=== PATIENT | female | born 1955 | race Caucasian/White ===

== ENCOUNTER 2017-09-29 07:29 | Outpatient (CLI) ==
[2017-03-07 17:04] VITALS: BMI 28.3
== END 2017-09-29 07:30 | disposition home or self-care (01) ==
LOC: LAB 07:29
PROVIDERS: ATTEND Nurse Practitioner Family
DX: R53.83 Other fatigue (principal); N95.9 Unspecified menopausal and perimenopausal disorder
CPT/HCPCS: 36415; 82306; 82533; 82607; 82626; 82670; 82679; 82947; 83036; 83525; 84144; 84403; 84439; 84443; 84481; 86376

== ENCOUNTER 2017-11-19 22:36 | Outpatient (CLI) ==
[2017-03-07 17:04] VITALS: BMI 28.3
--- NOTE | 2017-11-19 23:30 | DI ---
EXAM: Chest, two views, 11/19/2017 HISTORY: Cough and fever COMPARISON: 01/03/2016 FINDINGS / IMPRESSION: Cardiomediastinal countours appear stable. There is no focal pulmonary conso lidation. No pleural effusion or pneumothorax. No acute cardiopulmonary process.
== END 2017-11-19 22:37 | disposition home or self-care (01) ==
LOC: LAB 22:36
PROVIDERS: ATTEND Internal Medicine Geriatric Medicine
DX: R05 Cough (principal); R50.9 Fever, unspecified
CPT/HCPCS: 36415; 80053; 85025

== ENCOUNTER 2018-01-29 07:05 | Outpatient (CLI) | payer OTHER ==
[2017-03-07 17:04] VITALS: BMI 28.3
--- NOTE | 2018-01-29 09:03 | US ---
EXAM: Renal artery duplex HISTORY: Uncontrolled hypertension COMPARISON: Renal ultrasound same day and CT abdomen pelvis 04/29/2016 TECHNIQUE: Sonographic and Doppler evaluation of the kidneys and renal arteries were performed. FINDINGS: The aorta is normal in appearance with peak systolic velocity of 40 centimeters per second and diameter of 1.4 cm. The IVC is patent. The right kidney measures 10.5 cm in length. Peak systolic velocities measure 50 cm/sec at the ostium, 90 cm/sec in the mid artery and 60 cm/sec i n the renal hilum. These are normal. The renal artery/aortic ratio measures 1.2 at the ostium, 2.2 in the mid renal artery and 1.5 in the hilum. The arcuate artery demonstrates a peak systolic velocity of 20 cm/sec and resistive index of 0.62 whi ch is normal. The right renal vein is patent. There are triphasic and nonspecific wave form. The left kidney measures 10.4 cm in length. Peak systolic velocities measure 70 cm/sec at the ostium, 80 cm/sec in the mid renal artery and 50 cm /sec in the renal hilum. These are normal. The renal artery/aortic ratio measures 1.7 at the ostium, 2.0 in the mid left renal artery and 1.2 in the renal hilum. The arcuate artery measures peak systolic velocity of 30 cm/sec with a resistive index of 0.6 which i s normal. The left renal vein is patent. There are triphasic and nonspecific wave forms. IMPRESSION: 1. No elevated peak systolic velocities to suggest renal arterial stenosis. 2. Resistive indices are within normal limits.
--- NOTE | 2018-01-29 09:19 | US ---
EXAM: Renal ultrasound HISTORY: Hypertension COMPARISON: None TECHNIQUE: Renal ultrasound was perform FINDINGS: Right kidney measures 3.9 x 5.1 x 10.1 cm. Left kidney measures 6.1 x 4.5 x 10.6 cm. Hoang al cortical echogenicity is normal. No hydronephrosis or renal calculus large enough to cause acoust ic shadowing. Bladder only mildly distended and poorly evaluated, grossly unremarkable. IMPRESSION: Sonographically normal kidneys.
== END 2018-01-29 07:06 | disposition home or self-care (01) ==
LOC: RAD 07:05
PROVIDERS: ATTEND Nurse Practitioner Family
DX: I10 Essential (primary) hypertension (principal)
CPT/HCPCS: 76770